=== PATIENT | female | born 1995 | race Caucasian/White ===

== ENCOUNTER 2018-02-27 23:45 | Outpatient (CLI) | payer OTHER, MEDICAID ==
[2018-02-28] MEDS: ONDANSETRON 4 MG INJ IV (01:16)
[2018-02-28] MEDS: LACTATED RINGER'S 1,000 ML IV (01:16)
== END 2018-02-28 02:25 | disposition home or self-care (01) ==
LOC: OBT 23:45 → L-D 23:45 → OBT 02-28 02:25
DX: O47.03 False labor before 37 completed weeks of gestation, third trimester (principal); Z3A.36 36 weeks gestation of pregnancy
CPT/HCPCS: 36415; 96365

== ENCOUNTER 2018-02-28 09:59 | Inpatient (IN) | payer OTHER ==
[2018-02-28] MEDS: LACTATED RINGER'S 1,000 ML IV (12:05)
[2018-02-28 12:16] LABS: ADD MAN DIFF? NO
[2018-02-28 12:26] LABS: ABNORMAL IP MESSAGE 1; BASOPHILS % 0.1 % (0.0-2.0); HEMATOCRIT 36.8 % (37.0-47.0); HEMOGLOBIN 12.8 g/dl (12.0-16.0); LYMPHOCYTES # 0.4 10^3/ul (0.8-2.9); LYMPHOCYTES % 5.3 % (15.0-51.0); MEAN CORPUSCULAR HEMOGLOBIN 31.2 pg (29.0-33.0); MEAN CORPUSCULAR HGB CONC 34.8 g/dl (32.0-37.0); MEAN CORPUSCULAR VOLUME 89.8 fl (82.0-101.0); MEAN PLATELET VOLUME 11.7 fl (7.4-10.4); MONOCYTE # 0.3 10^3/ul (0.3-0.9); MONOCYTES % 3.1 % (0.0-11.0); NEUTROPHIL # 7.3 10^3/ul (1.6-7.5); PLATELET COUNT 118 10^3/UL (140-415); RED CELL DISTRIBUTION WIDTH 12.7 % (11.5-14.5)
[2018-02-28 12:27] LABS: POSITIVE DIFF @See below
[2018-02-28 12:41] LABS: ADD UMIC YES; UR ASCORBIC ACID NEGATIVE (NEGATIVE); UR BACTERIA MODERATE /HPF (NONE SEEN); UR BILIRUBIN (Dip) NEGATIVE (NEGATIVE); UR BLOOD (Dip) NEGATIVE (NEGATIVE); UR CLARITY SLIGHTLY CLOUDY (CLEAR); UR COLOR YELLOW (YELLOW); UR GLUCOSE (Dip) NEGATIVE (NEGATIVE); UR KETONES (Dip) 2+ mg/dL (NEGATIVE); UR LEUKOCYTE ESTERASE (Dip) 2+ Leu/ul (NEGATIVE); UR NITRITE (Dip) NEGATIVE (NEGATIVE); UR RBC 1 /HPF (0-5); UR SPECIFIC GRAVITY (Dip) 1.009 (1.003-1.030); UR SQUAMOUS EPITHELIAL CELL FEW /HPF (FEW); UR TOTAL PROTEIN (Dip) NEGATIVE (NEGATIVE); UR UROBILINOGEN (Dip) 2+ mg/dL (NEGATIVE); UR WBC 4 /HPF (0-5)
[2018-02-28 12:44] LABS: ALANINE AMINOTRANSFERASE 30 IU/L (13-69); ALBUMIN 3.3 g/dl (3.3-4.9); ALBUMIN/GLOBULIN RATIO 1.17; ALKALINE PHOSPHATASE 137 IU/L (42-121); ANION GAP 11 (8-16); ASPARTATE AMINO TRANSFERASE 31 IU/L (15-46); BILIRUBIN,INDIRECT 0.9 mg/dl (0-1.1); BILIRUBIN,TOTAL 0.9 mg/dl (0.2-1.3); CARBON DIOXIDE 24 mmol/L (21-31); CHLORIDE 108 mmol/L (97-110); GLUCOSE 89 mg/dl (70-220); TOTAL PROTEIN 6.1 g/dl (6.1-8.1)
[2018-02-28 12:46] LABS: BLOOD UREA NITROGEN 5 mg/dl (7-20); CREATININE 0.43 mg/dl (0.44-1.00); POTASSIUM 3.7 mmol/L (3.5-5.1); SODIUM 139 mmol/L (135-144)
[2018-02-28 12:54] LABS: INR 0.94; PROTIME 12.7 Sec (11.9-14.9)
[2018-02-28 12:55] LABS: PARTIAL THROMBOPLASTIN TIME 28.5 Sec (25.0-35.0)
[2018-02-28] MEDS ORDERED: LACTATED RINGER'S 1,000 ML IV (13:39)
[2018-02-28] MEDS ORDERED: CARBOPROST 250 MCG INJ IM ×2 (14:00→17:30)
[2018-02-28] MEDS ORDERED: OXYTOCIN 30 UNITS/LR 500 ML IV ×3 (14:00→17:30)
[2018-02-28] MEDS ORDERED: MISOPROSTOL 200 MCG TAB PR ×2 (14:00→17:30)
[2018-02-28] MEDS ORDERED: BUTORPHANOL 2 MG INJ IV (14:00)
[2018-02-28] MEDS ORDERED: LIDOCAINE 1% (MPF) 30 ML INJ INJ (14:00)
[2018-02-28] MEDS ORDERED: METHYLERGONOVINE 0.2 MG INJ IM ×2 (14:00→17:30)
[2018-02-28] MEDS ORDERED: BUTORPHANOL 1 MG INJ IV (14:00)
[2018-02-28] MEDS ORDERED: AMPICILLIN 2 GM/NS (PMX) 100 ML (14:19)
[2018-02-28] MEDS: AMPICILLIN 2 GM/NS (PMX) 100 ML IV (14:24)
[2018-02-28] MEDS ORDERED: NALOXONE (0.4 MG/ML) INJ IV (16:00)
[2018-02-28] MEDS ORDERED: EPHEDrine SULFATE 50 MG/5 ML SYG IV (16:00)
[2018-02-28] MEDS ORDERED: ONDANSETRON 4 MG INJ IV (16:00)
[2018-02-28] MEDS ORDERED: FENTAnyl 2MCG/ML-ROPIV 0.2% 100 ML BAG EPI (16:00)
[2018-02-28] MEDS ORDERED: DIPHENHYDRAMINE 50 MG INJ IV (16:00)
[2018-02-28] MEDS: OXYTOCIN 30 UNITS/LR 500 ML IV ×3 (17:12→23:58)
[2018-02-28] MEDS ORDERED: OXYCODONE/ASPIRIN (4.88/325) TAB PO (17:30)
[2018-02-28] MEDS ORDERED: AMPICILLIN 1 GM/NS (PMX) 50 ML IV (18:30)
[2018-02-28] MEDS: IBUPROFEN 600 MG TAB PO ×2 (18:44→23:58)
[2018-02-28 19:34] LABS: ADD MAN DIFF? NO
[2018-02-28 19:40] LABS: WHITE BLOOD COUNT 11.2 10^3/ul (4.8-10.8)
[2018-02-28 19:40] LABS: ABNORMAL IP MESSAGE 1; BASOPHILS % 0.2 % (0.0-2.0); HEMATOCRIT 36.7 % (37.0-47.0); HEMOGLOBIN 12.6 g/dl (12.0-16.0); LYMPHOCYTES # 0.3 10^3/ul (0.8-2.9); LYMPHOCYTES % 2.3 % (15.0-51.0); MEAN CORPUSCULAR HGB CONC 34.3 g/dl (32.0-37.0); MEAN CORPUSCULAR VOLUME 90.2 fl (82.0-101.0); MEAN PLATELET VOLUME 11.7 fl (7.4-10.4); MONOCYTE # 0.3 10^3/ul (0.3-0.9); MONOCYTES % 2.5 % (0.0-11.0); NEUTROPHIL # 10.5 10^3/ul (1.6-7.5); NEUTROPHILS % 94.2 % (39.0-77.0); PLATELET COUNT 135 10^3/UL (140-415); RED BLOOD COUNT 4.07 10^6/ul (4.20-5.40); RED CELL DISTRIBUTION WIDTH 12.5 % (11.5-14.5)
[2018-02-28 19:41] LABS: POSITIVE DIFF @See below
[2018-02-28] MEDS: LACTATED RINGER'S 1,000 ML IV* (20:00)
[2018-02-28 20:02] LABS: INR 1.04; PROTIME 13.7 Sec (11.9-14.9); PT RATIO 1.1
[2018-02-28 20:03] LABS: PARTIAL THROMBOPLASTIN TIME 26.5 Sec (25.0-35.0)
[2018-02-28 20:26] LABS: HEPATITIS B SURFACE ANTIGEN NEGATIVE (NEGATIVE)
[2018-02-28 22:30] LABS: RAPID PLASMA REAGIN NONREACTIVE (NR)
[2018-03-01] MEDS: OXYTOCIN 30 UNITS/LR 500 ML IV ×2 (00:04→00:06)
[2018-03-01] MEDS: LACTATED RINGER'S 1,000 ML IV* ×3 (00:59→17:11)
[2018-03-01] MEDS: IBUPROFEN 600 MG TAB PO ×4 (05:49→23:53)
[2018-03-01 09:08] LABS: ADD MAN DIFF? NO
[2018-03-01 09:15] LABS: BASOPHILS % 0.2 % (0.0-2.0); EOSINOPHILS % 0.1 % (0.0-7.0); HEMATOCRIT 33.4 % (37.0-47.0); HEMOGLOBIN 11.6 g/dl (12.0-16.0); LYMPHOCYTES # 1.1 10^3/ul (0.8-2.9); LYMPHOCYTES % 12.4 % (15.0-51.0); MEAN CORPUSCULAR HEMOGLOBIN 31.2 pg (29.0-33.0); MEAN CORPUSCULAR HGB CONC 34.7 g/dl (32.0-37.0); MEAN CORPUSCULAR VOLUME 89.8 fl (82.0-101.0); MEAN PLATELET VOLUME 11.7 fl (7.4-10.4); MONOCYTE # 0.6 10^3/ul (0.3-0.9); MONOCYTES % 6.6 % (0.0-11.0); NEUTROPHIL # 7.1 10^3/ul (1.6-7.5); NEUTROPHILS % 79.8 % (39.0-77.0); PLATELET COUNT 137 10^3/UL (140-415); RED BLOOD COUNT 3.72 10^6/ul (4.20-5.40); RED CELL DISTRIBUTION WIDTH 12.6 % (11.5-14.5)
[2018-03-01 09:15] LABS: WHITE BLOOD COUNT 8.9 10^3/ul (4.8-10.8)
[2018-03-02] MEDS: IBUPROFEN 600 MG TAB PO ×2 (05:48→12:14)
[2018-03-02] MEDS: LANOLIN 7 GM TUBE TOP (08:52)
[2018-03-02] MEDS: DIPHTH/TET/ACEL PERTUSS (ADULT) 0.5 ML VIAL IM* (09:00)
== END 2018-03-02 17:50 | disposition home or self-care (01) | DRG 775 ==
LOC: OBT 09:59 → L-D 10:00 → SDS 10:24 → L-D 14:02 → OBT 13:30 → L-D 14:07 → PP1 18:32
PROC: 10E0XZZ Delivery of Products of Conception, External Approach (ICD-10-PCS; principal; 2018-02-28)
PROC: 4A1HXCZ Monitoring of Products of Conception, Cardiac Rate, External Approach (ICD-10-PCS; 2018-02-28)
DX: O60.14X0 Preterm labor third trimester with preterm delivery third trimester, not applicable or unspecified (principal); O69.81X0 Labor and delivery complicated by cord around neck, without compression, not applicable or unspecified; Z3A.36 36 weeks gestation of pregnancy; Z37.0 Single live birth
CPT/HCPCS: 36415; 76815; 76818; 80053; 81001; 85025; 85610; 85730; 86592; 86850; 86900; 86901; 87340; 96360; 99464